=== PATIENT | male | born 1980 | race Caucasian/White ===

== ENCOUNTER 2017-03-02 16:08 | Emergency (ER) | payer BC ==
[2017-03-02 16:22] VITALS: BP 140/87
--- NOTE | 2017-03-02 16:30 | UC ---
Back Pain HPI - HPI Summary HPI Summary: 36 YEAR OLD MALE PRESENTS WITH RIGHT SIDED LOWER BACK PAIN. NO TRAUMA OF LIFTING HEAVY OBJECTS. - History of Current Complaint Chief Complaint: UCBackPain Stated Complaint: BACK PAIN Time Seen by Provider: 03/02/17 16:26 Hx Obtained From: Patient Onset/Duration: Sudden Onset Timing: Constant Severity Initially: Moderate Severity Currently: Moderate Pain Scale Used: 0-10 Numeric - 5 Character: Sharp Aggravating Factor(s): Movement, Lifting, Bending - Allergies/Home Medications Allergies/Adverse Reactions: Allergies Allergy/AdvReac Type Severity Reaction Status Date / Time No Known Allergies Allergy Verified 03/02/17 16:22 Home Medications: Home Medications ALPRAZolam TAB* [Xanax TAB*] 0.5 mg PO TID PRN 03/02/17 [History Confirmed 03/02] Bupropion XL* [Wellbutrin XL *] 300 mg PO DAILY 03/02/17 [History Confirmed 10/12] DULoxetine DR CAP* [Cymbalta CAP*] 60 mg PO DAILY 03/02/17 [History Confirmed ] Lisinopril [Zestril 5 MG-] 5 mg PO DAILY 03/02/17 [History Confirmed 03/02/17] QUEtiapine TAB* [Seroquel TAB*] 50 mg PO BEDTIME 03/02/17 [History Confirmed 10/12] busPIRone TAB* [Buspar TAB*] 30 mg PO BID 03/02/17 [History Confirmed 03/02/17] PMH/Surg Hx/FS Hx/Imm Hx Previously Healthy: Yes - Surgical History Surgical History: Yes Surgery Procedure, Year, and Place: tonsilectomy - Social History Alcohol Use: Occasionally Substance Use Type: None Smoking Status (MU): Never Smoked Tobacco Review of Systems Constitutional: Negative Skin: Negative Eyes: Negative ENT: Negative Respiratory: Negative Cardiovascular: Negative Gastrointestinal: Negative Genitourinary: Negative Motor: Negative Neurovascular: Negative Musculoskeletal: Other: - RIGHT SIDED LOWER BACK PAIN Neurological: Negative Psychological: Negative All Other Systems Reviewed And Are Negative: Yes Physical Exam Triage Information Reviewed: Yes Vital Signs: Initial Vital Signs Temp 37.2 C 03/02/17 16:16 Pulse 110 03/02/17 16:16 Resp 14 03/02/17 16:16 BP 140/87 03/02/17 16:16 Pulse Ox 100 03/02/17 16:16 Vital Signs Reviewed: Yes Eye Exam: Normal ENT Exam: Normal Dental Exam: Normal Neck exam: Normal Neck: Positive: 1 Respiratory Exam: Normal Cardiovascular Exam: Normal Abdominal Exam: Normal Musculoskeletal: Positive: Other: - RIGHT SIDED LOWER BACK PAIN Neurological Exam: Normal Psychological Exam: Normal Skin Exam: Normal Back Pain Course/Dx - Differential Dx/Diagnosis Provider Diagnoses: LOWER RIGHT SIDED BACK PAIN Discharge - Discharge Plan Condition: Stable Disposition: HOME Prescriptions: Ibuprofen TAB* [Motrin TAB* 800 MG] 800 mg PO Q8H #30 tab Methocarbamol TAB* [Robaxin 500 MG TAB*] 500 mg PO TID PRN #30 tab PRN Reason: Spasms - Back Patient Education Materials: Low Back Strain (ED), Acute Low Back Pain (ED) [place] [facility] [place]Medical Doctor] -
== END 2017-03-02 16:40 | disposition home or self-care (01) ==
LOC: UCEAST 16:08
DX: M54.5 Low back pain (principal)
CPT/HCPCS: 99202; G0463